=== PATIENT | female | born 2005 | race Two or more races ===

== ENCOUNTER 2023-04-09 00:12 | Emergency (ER) | payer OTHER ==
[~2023-04-09] VITALS: Ht 177.8 cm; Wt 132.4 kg
== END 2023-04-09 03:22 | disposition home or self-care (01) ==
LOC: EMR PED 00:12 → ER 00:12
DX: O20.9 Hemorrhage in early pregnancy, unspecified (principal); Z3A.01 Less than 8 weeks gestation of pregnancy